=== PATIENT | female | born 1940 | race Caucasian/White ===

== ENCOUNTER → 2016-03-21 | Outpatient (CLI) | payer MEDICARE, BC ==
--- NOTE | 2016-03-21 09:43 | US ---
EXAMINATION TYPE: US liver DATE OF EXAM: 03/21/2016 9:16 AM COMPARISON: NONE CLINICAL HISTORY: K76.89 diseases of the liver. pt had MRI elsewher that questioned liver cyst, pt st ates scan in office couldn't find, no complaints of pain EXAM MEASUREMENTS: Liver Length: 17.9 cm Gallbladder Wall: 0.3 cm CBD: 1.0 cm Right Kidney: 9.0 x 4.3 x 4.3 cm Findings: The significant exam limitations due to pt size and increased overlying bowel gas Pancreas: limited, small portions seen appear wnl Liver: hepatomegaly, limited, attenuating, septated 1.3cm cyst within the left lobe; anterior dome h as a questionable 2.0cm area--?etiology Gallbladder: limited, wnl Evidence for sonographic Fowler's sign: no CBD: dilated at 1.0cm; ?etiology Right Kidney: wnl IMPRESSION: 1. Hepatomegaly with probable fatty hepatic infiltration. Cystic lesion left hepatic lobe. Additional Possible subcapsular lesion. Consider CT correlation.
== END | disposition home or self-care (01) ==
LOC: RADUSWWP 08:48
PROVIDERS: ATTEND Family Medicine
DX: K76.89 Other specified diseases of liver (principal); R16.0 Hepatomegaly, not elsewhere classified
CPT/HCPCS: 76705

== ENCOUNTER → 2016-03-31 | Outpatient (CLI) | payer MEDICARE, BC ==
[2016-03-31 08:27] LABS: Blood Urea Nitrogen 18 mg/dL (7-17); Non-African American GFR(MDRD) >60 (>60 ml/min/1.73 sqM)
--- NOTE | 2016-03-31 09:50 | CT ---
EXAMINATION TYPE: CT abdomen pelvis w con DATE OF EXAM: 03/31/2016 9:19 AM COMPARISON: NONE HISTORY: Liver lesion seen on ultrasound. CT DLP: 1044 mGycm CONTRAST: Omni 300/100ml injected FINDINGS: LUNG BASES-: No visible nodule. No infiltrate. There is evidence of cardiomegaly. Parenchymal scarri ng right lateral lung base. LIVER/GB: No calcified gallstones. Lesion of decreased attenuation compatible with cyst measuring 1 .5 cm left hepatic lobe. Biliary tree is of normal caliber. PANCREAS: No inflammation. No distinct mass. SPLEEN: No splenic enlargement. No lesion seen. ADRENALS: No nodule. No thickening. KIDNEYS/BLADDER: No hydronephrosis. No nephrolithiasis. 7 mm cyst lower pole right kidney. Urinary bladder grossly unremarkable. BOWEL: Small fixed hiatal hernia noted. Normal appendix. Normal bowel caliber. No inflammation. Mod erate fecal stasis noted. GENITAL ORGANS: No gross abnormality. LYMPH NODES: No greater than 1cm abdominal or pelvic lymph nodes are appreciated. AORTA: No significant abnormality. OSSEOUS STRUCTURES: No significant abnormality is seen. OTHER: No significant additional abnormality is seen. IMPRESSION: 1. Simple cyst left hepatic lobe. 2. Moderate fecal stasis. 3. Small cyst lower pole right kidney.
== END | disposition home or self-care (01) ==
LOC: RADCTMAIN 07:37
PROVIDERS: ATTEND Physician Assistant
DX: N28.1 Cyst of kidney, acquired (principal); K59.00 Constipation, unspecified
CPT/HCPCS: 82565; 84520; 74177; 36415; Q9967

== ENCOUNTER → 2016-04-15 | Outpatient (CLI) | payer MEDICARE, BC ==
--- NOTE | 2016-04-16 11:58 | MM ---
Reason for exam: screening (asymptomatic). Last mammogram was performed 1 year ago. History: Patient is postmenopausal and history of other cancer. Family history of breast cancer in paternal aunt at age 50. Reduction of the left breast. Reduction of the right breast. 2 excisional biopsies of the right breast. Took estrogen for 21 years. Physical Findings: A clinical breast exam by your physician is recommended on an annual basis and results should be correlated with mammographic findings. MG 3D Screening Mammo W/Cad Bilateral CC and MLO view(s) were taken. Prior study comparison: April 13, 2015, bilateral MG 3d screening mammo w/cad. February 14, 2014, bilateral MG screening mammo w CAD. The breast tissue is heterogeneously dense. This may lower the sensitivity of mammography. No significant changes when compared with prior studies. ASSESSMENT: Benign, BI-RAD 2 RECOMMENDATION: Routine screening mammogram of both breasts in 1 year.
== END | disposition home or self-care (01) ==
LOC: RADMAMWWP 11:58
PROVIDERS: ATTEND Obstetrics & Gynecology
DX: Z12.31 Encounter for screening mammogram for malignant neoplasm of breast (principal); Z80.3 Family history of malignant neoplasm of breast
CPT/HCPCS: 77063; G0202